=== PATIENT | female | born 1995 | race Caucasian/White ===

== ENCOUNTER 2017-09-07 20:01 | Observation (INO) | payer OTHER ==
[~2017-09-07] VITALS: Ht 162.6 cm; Wt 53.1 kg
[2017-09-07 20:05] VITALS: BP 166/73
[2017-09-07] MEDS ORDERED: LEVALBUTER1.25 MG/0. INH (20:12)
[2017-09-07] MEDS ORDERED: EPIPEN0.3 MG/0.1 IJ (20:12)
[2017-09-07] MEDS ORDERED: ALLEGRA ALLERG180 MG PO (20:13)
[2017-09-07] MEDS ORDERED: EFFEXOR XR75 MG PO (20:14)
[2017-09-07] MEDS ORDERED: FLOVENT HFA 4444 MCG INH (20:14)
[2017-09-07] MEDS ORDERED: NEURONTIN300 MG PO (20:15)
[2017-09-07] MEDS ORDERED: AMITRIPTYLINE H75 M1 PO (20:15)
[2017-09-07] MEDS ORDERED: NORCO 10-325 T1 EACH PO (20:16)
[2017-09-07 20:50] LABS: HEMATOCRIT 34.6 % (37.0-47.0); HEMOGLOBIN 11.8 gm/dL (12.0-15.0); MCH 29.3 pg (26.0-34.0); MCHC 34.1 g/dL (28.0-37.0); MCV 85.9 fL (80.0-100.0); RBC 4.03 mil/uL (4.20-5.00); RDW 12.4 % (10.5-14.5); WBC 6.6 thou/uL (4.0-11.0)
[2017-09-07 21:02] LABS: CREATININE 0.7 mg/dL (0.6-1.0); POTASSIUM 3.5 mmol/L (3.5-5.1)
[2017-09-07 21:49] VITALS: BP 140/80
[2017-09-07 21:58] VITALS: BP 120/84
[2017-09-08 03:15] VITALS: BP 128/80
[2017-09-08] MEDS ORDERED: MEDROL DOSPAK21 TA1 PO (09:27)
[2017-09-08 09:34] VITALS: BP 122/57
[2017-09-08 10:08] VITALS: BP 122/57
[2017-09-08 11:31] VITALS: BP 122/57
== END 2017-09-08 11:15 | disposition home or self-care (01) ==
LOC: ER 20:01 → EROBS 20:58 → 4S 21:50
PROVIDERS: Physician Assistant
DX: L50.9 Urticaria, unspecified (principal); Q78.0 Osteogenesis imperfecta; L29.9 Pruritus, unspecified; F17.210 Nicotine dependence, cigarettes, uncomplicated